=== PATIENT | female | born 1940 | race Caucasian/White ===

== ENCOUNTER 2020-10-11 12:18 | Emergency (ER) | payer MEDICARE ==
[~2020-10-11 12:18] MED LIST: ANASTROZOLE1 MG PO; ASPIRIN CHEWABL81 MG PO; BENADRYL 25MG C25 MG PO; CALTRATE 600 +1 EACH PO; CARVEDILOL12.5 MG PO; COQ1050 MG PO; FISH OIL 1,0001 EACH PO; FLONASE 0.05% N16 GM; IBUPROFEN600 MG PO; IMDUR ER TAB 3030 MG PO; LIPITOR TAB 2020 MG PO; LISINOPRIL40 MG PO; MUCINEX600 MG PO; NORCO 5-325 TA1 EACH PO; NORVASC 5 MG TAB5 MG PO; SYMBICORT 16010.2 GM INH; SYNTHROID25 MCG PO; ZOFRAN ODT 4 MG4 MG PO; ZYRTEC10 M3 PO
[2020-10-11] MEDS ORDERED: HYDROCODON-ACE1 EAC2 PO (14:21)
== END 2020-10-11 14:54 | disposition home or self-care (01) ==
LOC: ER1 12:18
DX: S42.212A Unspecified displaced fracture of surgical neck of left humerus, initial encounter for closed fracture (principal); I10 Essential (primary) hypertension; I25.2 Old myocardial infarction; Z88.5 Allergy status to narcotic agent; Z88.8 Allergy status to other drugs, medicaments and biological substances; W01.0XXA Fall on same level from slipping, tripping and stumbling without subsequent striking against object, initial encounter; Y92.22 Religious institution as the place of occurrence of the external cause
CPT/HCPCS: 72072; 73030; 73502; 99283